=== PATIENT | female | born 1945 | race Caucasian/White ===

== ENCOUNTER 2020-12-15 14:41 | Emergency (ER) | payer MEDICARE ==
[~2020-12-15] VITALS: Ht 172.7 cm; Wt 72.6 kg
[2020-12-15] MEDS ORDERED: HYDROCODONE/APAP 7.5MG-325MG 1 EA TAB PO PRN (15:00)
[2020-12-15] MEDS ORDERED: TYLENOL # 31 EA PO (18:09)
[2020-12-15 18:24] VITALS: BP 163/78
== END 2020-12-15 18:29 | disposition home or self-care (01) ==
LOC: ER 14:53
DX: M25.552 Pain in left hip (principal); M16.12 Unilateral primary osteoarthritis, left hip; W01.0XXA Fall on same level from slipping, tripping and stumbling without subsequent striking against object, initial encounter; Y93.01 Activity, walking, marching and hiking; Y92.007 Garden or yard of unspecified non-institutional (private) residence as the place of occurrence of the external cause; I10 Essential (primary) hypertension; Z95.5 Presence of coronary angioplasty implant and graft
CPT/HCPCS: 73522; 99284

== ENCOUNTER 2020-12-17 11:21 | Inpatient (IN) | payer MEDICARE ==
[~2020-12-17] VITALS: Ht 172.7 cm; Wt 72.6 kg
[~2020-12-17 11:21] MED LIST: TYLENOL # 31 EA PO
[2020-12-17] MEDS ORDERED: ONDANSETRON HCL INJ 2MG/ML 2ML 2 MG/ML VIAL IV STA (12:46)
[2020-12-17] MEDS ORDERED: MORPHINE SULFATE INJ 4 MG/ML INJ 1ML IV PRN ×2 (13:00→13:45)
[2020-12-17] MEDS ORDERED: DIAZEPAM 5 MG TAB PO ONE (13:30)
[2020-12-17] MEDS ORDERED: ONDANSETRON HCL INJ 2MG/ML 2ML 2 MG/ML VIAL IV PRN ×2 (13:45→14:00)
[2020-12-17 13:56] LABS: BASOPHILS % 0.3 % (0.0-1.0); EOSINOPHILS % 0.3 % (0.0-6.0); HEMATOCRIT 42.8 % (34.2-44.1); HEMOGLOBIN 13.9 g/dL (12.0-16.0); LYMPHOCYTES # (AUTO) 1.2 (1.0-3.2); LYMPHOCYTES % 10.4 % (18.0-39.1); MEAN CORPUSCULAR HEMOGLOBIN 28.2 pg (28-32); MEAN CORPUSCULAR HGB CONC 32.5 g/dL (31-35); MEAN CORPUSCULAR VOLUME 86.8 fL (81-99); MONOCYTES # (AUTO) 1.1 (0.2-0.8); MONOCYTES % 9.1 % (4.4-11.3); NEUTROPHILS # (AUTO) 9.1 (2.1-6.9); NEUTROPHILS % 79.4 % (38.7-80.0); PLATELET COUNT 242 x10e3/uL (140-360); RED BLOOD COUNT 4.93 x10e6/uL (3.6-5.1); RED CELL DISTRIBUTION WIDTH 12.9 % (11.7-14.4)
[2020-12-17] MEDS ORDERED: DOCUSATE SODIUM 100 MG CAP PO PRN (14:00)
[2020-12-17 14:04] LABS: INR 0.92; PROTHROMBIN TIME 12.9 seconds (11.9-14.5)
[2020-12-17 14:13] LABS: ALBUMIN 3.6 g/dL (3.5-5.0); ALBUMIN/GLOBULIN RATIO 1.1 (0.8-2.0); ANION GAP 17.2 mmol/L (8-16); CALCIUM 9.4 mg/dL (8.4-10.2); CREATININE, SERUM 0.97 mg/dL (0.57-1.11); POTASSIUM 3.2 mmol/L (3.5-5.1)
[2020-12-17] MEDS ORDERED: HYDROMORPHONE 1MG/1ML INJ IV PRN (14:15)
[2020-12-17] MEDS ORDERED: MIRTAZAPINE7.5 MG PO (17:55)
[2020-12-17] MEDS ORDERED: ATORVASTATIN CA10 MG PO (17:55)
[2020-12-17] MEDS ORDERED: ATORVASTATIN CA20 MG PO (17:55)
[2020-12-17] MEDS ORDERED: LOSARTAN POTAS100 MG PO (17:55)
[2020-12-17] MEDS ORDERED: HYDROCHLOROTHIA25 MG PO (17:55)
[2020-12-17] MEDS ORDERED: AMIODARONE HCL200 MG PO (17:55)
[2020-12-17 18:00] VITALS: BP 156/102
[2020-12-17] MEDS ORDERED: AMLODIPINE BESYL5 MG PO (18:13)
[2020-12-17] MEDS ORDERED: TUMS ULTRA400 MG PO (18:14)
[2020-12-17] MEDS ORDERED: ACETAMINOPHEN/CODEINE 300MG - 30MG TAB PO PRN (18:15)
[2020-12-17] MEDS: OYST-CAL-D 500MG TABLET PO SCH ×2 (18:20→20:59)
[2020-12-17] MEDS: HYDROMORPHONE 1MG/1ML INJ IV PRN ×2 (18:20→22:07)
[2020-12-17] MEDS: FAMOTIDINE 20 MG TAB PO SCH (18:20)
[2020-12-17] MEDS ORDERED: HEPARIN SOD (PORCINE) 5,000 UNIT/ML VIAL SC ONE (18:30)
[2020-12-17 18:49] LABS: BASOPHILS % 0.4 % (0.0-1.0); EOSINOPHILS % 0.4 % (0.0-6.0); HEMATOCRIT 39.5 % (34.2-44.1); HEMOGLOBIN 12.7 g/dL (12.0-16.0); LYMPHOCYTES # (AUTO) 1.4 (1.0-3.2); LYMPHOCYTES % 15.9 % (18.0-39.1); MEAN CORPUSCULAR HGB CONC 32.2 g/dL (31-35); MEAN CORPUSCULAR VOLUME 87.2 fL (81-99); MONOCYTES # (AUTO) 0.8 (0.2-0.8); MONOCYTES % 8.5 % (4.4-11.3); NEUTROPHILS # (AUTO) 6.7 (2.1-6.9); NEUTROPHILS % 74.4 % (38.7-80.0); PLATELET COUNT 245 x10e3/uL (140-360); RED BLOOD COUNT 4.53 x10e6/uL (3.6-5.1); RED CELL DISTRIBUTION WIDTH 12.9 % (11.7-14.4)
[2020-12-17 19:04] LABS: INR 0.98; PROTHROMBIN TIME 13.6 seconds (11.9-14.5)
[2020-12-17 19:05] LABS: PARTIAL THROMBOPLASTIN TIME 29.8 seconds (23.8-35.5)
[2020-12-17 19:13] LABS: ALBUMIN 3.4 g/dL (3.5-5.0); ALBUMIN/GLOBULIN RATIO 1.1 (0.8-2.0); ANION GAP 12.1 mmol/L (8-16); CREATININE, SERUM 0.94 mg/dL (0.57-1.11); POTASSIUM 3.1 mmol/L (3.5-5.1)
[2020-12-17 20:00] VITALS: BP 135/79
[2020-12-17] MEDS ORDERED: POTASSIUM CHLORIDE 20 MEQ TAB CR PO STA (20:24)
[2020-12-17] MEDS: ATORVASTATIN 20 MG TAB PO SCH (20:59)
[2020-12-17] MEDS: AMLODIPINE BESYLATE 5 MG TAB PO SCH (20:59)
[2020-12-17] MEDS: MIRTAZAPINE 15 MG TAB PO SCH (20:59)
[2020-12-17 21:00] VITALS: BP 135/79
[2020-12-17] MEDS ORDERED: ATORVASTATIN 10 MG TAB PO SCH (21:00)
[2020-12-17] MEDS ORDERED: ZOLPIDEM TARTRATE 5 MG TAB PO PRN (21:00)
[2020-12-17 21:28] LABS: CLARITY,URINE SL CLOUDY (CLEAR); COLOR,URINE STRAW (YELLOW); KETONES,URINE NEGATIVE (NEGATIVE); LEUKOCYTE ESTERASE ,URINE NEGATIVE (NEGATIVE); NITRITE,URINE NEGATIVE (NEGATIVE); PROTEIN,URINE DIPSTICK NEGATIVE (NEGATIVE); URINE UROBILINOGEN 0.2 mg/dL (0.2 - 1)
[2020-12-17 21:41] LABS: AMORPHOUS SEDIMENT,URINE MODERATE (FEW); BACTERIA,URINE MODERATE /HPF; EPITHELIAL CELLS,URINE FEW /LPF; RBC,URINE 0-5 /HPF (0-5)
[2020-12-18] VITALS (7 sets, daily range): BP systolic 123–147; BP diastolic 61–75
[2020-12-18] MEDS: HYDROMORPHONE 1MG/1ML INJ IV PRN ×2 (01:45→05:18)
[2020-12-18 05:22] LABS: BASOPHILS # (AUTO) 0.1 (0.0-0.1); BASOPHILS % 0.6 % (0.0-1.0); EOSINOPHILS # (AUTO) 0.1 (0.0-0.4); EOSINOPHILS % 1.3 % (0.0-6.0); HEMATOCRIT 35.2 % (34.2-44.1); HEMOGLOBIN 11.3 g/dL (12.0-16.0); LYMPHOCYTES # (AUTO) 1.9 (1.0-3.2); LYMPHOCYTES % 22.6 % (18.0-39.1); MEAN CORPUSCULAR HEMOGLOBIN 28.3 pg (28-32); MEAN CORPUSCULAR HGB CONC 32.1 g/dL (31-35); MONOCYTES # (AUTO) 0.9 (0.2-0.8); NEUTROPHILS # (AUTO) 5.4 (2.1-6.9); NEUTROPHILS % 63.9 % (38.7-80.0); PLATELET COUNT 230 x10e3/uL (140-360); RED CELL DISTRIBUTION WIDTH 12.9 % (11.7-14.4)
[2020-12-18 06:05] LABS: ALBUMIN/GLOBULIN RATIO 1.2 (0.8-2.0); ANION GAP 11.1 mmol/L (8-16); CALCIUM 8.9 mg/dL (8.4-10.2); CREATININE, SERUM 0.99 mg/dL (0.57-1.11); POTASSIUM 3.1 mmol/L (3.5-5.1)
[2020-12-18] MEDS ORDERED: POTASSIUM CHLORIDE 20 MEQ TAB CR PO ONE (07:20)
[2020-12-18] MEDS: FAMOTIDINE 20 MG TAB PO SCH ×2 (08:15→16:30)
[2020-12-18] MEDS: METOPROLOL TARTRATE 25 MG TAB PO SCH ×2 (08:30→21:16)
[2020-12-18] MEDS: AMIODARONE HCL 200 MG TAB PO SCH (08:40)
[2020-12-18] MEDS: HYDROCHLOROTHIAZIDE 25 MG TAB PO SCH (08:41)
[2020-12-18] MEDS: MULTIVITAMINS/MINERALS TAB PO SCH (08:41)
[2020-12-18] MEDS: OYST-CAL-D 500MG TABLET PO SCH ×3 (08:42→21:16)
[2020-12-18] MEDS: TRAMADOL HCL 50 MG TAB PO PRN (08:44)
[2020-12-18] MEDS: SODIUM CHLORIDE 0.9% 1000ML 1,000 ML IV SCH ×2 (08:56→22:20)
[2020-12-18] MEDS ORDERED: CALCIUM CARBONATE 500 MG CHEWABLE TABS PO SCH (09:00)
[2020-12-18] MEDS ORDERED: LOSARTAN POTASSIUM 100 MG TAB PO SCH (09:00)
[2020-12-18] MEDS ORDERED: ATROPINE SULFATE 1 MG/ML VIAL ONE (12:29)
[2020-12-18] MEDS ORDERED: ONDANSETRON HCL INJ 2MG/ML 2ML 2 MG/ML VIAL ONE (12:29)
[2020-12-18] MEDS ORDERED: NEOSTIGMINE 1 MG/ML 10ML VIAL ONE (12:29)
[2020-12-18] MEDS ORDERED: SEVOFLURANE INHAL SOLN 250 ML PEN BTL ONE (12:29)
[2020-12-18] MEDS ORDERED: PROPOFOL IV EMULSION 10 MG/ML 20 ML VIAL ONE (12:29)
[2020-12-18] MEDS ORDERED: DEXAMETHASONE SOD PHOS INJ 4 MG/ML VIAL ONE (12:29)
[2020-12-18] MEDS ORDERED: LIDOCAINE HCL 2% LOCAL INJ 5 ML SDV VIAL INJ ONE (12:29)
[2020-12-18] MEDS ORDERED: ROCURONIUM BROMIDE 10 MG/ML 5ML VIAL IV ONE (12:29)
[2020-12-18] MEDS ORDERED: VANCOMYCIN HCL 1 GM VIAL ONE (15:09)
[2020-12-18] MEDS ORDERED: TRANEXAMIC ACID 1,000 MG/10 ML ML ONE (15:09)
[2020-12-18] MEDS ORDERED: ROPIVACAINE 246.25 MG, EPINEPHRINE HCL 1:1000 1ML 0.5 MG, CLONIDINE HCL 0.08 MG, KETORO... INJ ONE ×5 (16:00)
[2020-12-18] MEDS ORDERED: CEFAZOLIN SOD 1 GM VIAL ONE (16:50)
[2020-12-18] MEDS: CEFAZOLIN IV SCH ×2 (18:45→22:00)
[2020-12-18] MEDS: SODIUM CHLORIDE IV SCH ×2 (18:45→22:00)
[2020-12-18] MEDS ORDERED: DOCUSATE SODIUM 100 MG CAP PO PRN (18:45)
[2020-12-18 19:27] LABS: BASOPHILS # (AUTO) 0.1 (0.0-0.1); BASOPHILS % 0.4 % (0.0-1.0); EOSINOPHILS # (AUTO) 0.1 (0.0-0.4); EOSINOPHILS % 0.4 % (0.0-6.0); HEMATOCRIT 38.4 % (34.2-44.1); LYMPHOCYTES # (AUTO) 1.2 (1.0-3.2); LYMPHOCYTES % 6.5 % (18.0-39.1); MEAN CORPUSCULAR HEMOGLOBIN 28.1 pg (28-32); MEAN CORPUSCULAR HGB CONC 31.3 g/dL (31-35); MEAN CORPUSCULAR VOLUME 89.9 fL (81-99); MONOCYTES # (AUTO) 0.5 (0.2-0.8); MONOCYTES % 2.7 % (4.4-11.3); NEUTROPHILS # (AUTO) 16.6 (2.1-6.9); NEUTROPHILS % 89.4 % (38.7-80.0); PLATELET COUNT 225 x10e3/uL (140-360); RED BLOOD COUNT 4.27 x10e6/uL (3.6-5.1); RED CELL DISTRIBUTION WIDTH 12.9 % (11.7-14.4)
[2020-12-18 19:44] LABS: ANION GAP 12.6 mmol/L (8-16); CALCIUM 8.6 mg/dL (8.4-10.2); CREATININE, SERUM 1.14 mg/dL (0.57-1.11); POTASSIUM 3.6 mmol/L (3.5-5.1)
[2020-12-18] MEDS: ATORVASTATIN 20 MG TAB PO SCH (21:15)
[2020-12-18] MEDS: MIRTAZAPINE 15 MG TAB PO SCH (21:16)
[2020-12-18] MEDS: AMLODIPINE BESYLATE 5 MG TAB PO SCH (21:16)
[2020-12-19] VITALS: BP_SYST 112; BP_SYST 128; BP_DIAS 53; BP_DIAS 59
[2020-12-19 04:00] VITALS: BP 124/65
[2020-12-19 05:19] LABS: HEMATOCRIT 33.9 % (34.2-44.1); HEMOGLOBIN 11.1 g/dL (12.0-16.0)
[2020-12-19] MEDS: CEFAZOLIN IV SCH ×3 (06:00→21:40)
[2020-12-19] MEDS: SODIUM CHLORIDE IV SCH ×3 (06:00→21:40)
[2020-12-19 07:43] LABS: BASOPHILS % 0.1 % (0.0-1.0); HEMATOCRIT 34.7 % (34.2-44.1); HEMOGLOBIN 11.2 g/dL (12.0-16.0); LYMPHOCYTES # (AUTO) 0.7 (1.0-3.2); LYMPHOCYTES % 5.1 % (18.0-39.1); MEAN CORPUSCULAR HEMOGLOBIN 28.3 pg (28-32); MEAN CORPUSCULAR HGB CONC 32.3 g/dL (31-35); MEAN CORPUSCULAR VOLUME 87.6 fL (81-99); MONOCYTES # (AUTO) 0.7 (0.2-0.8); MONOCYTES % 5.2 % (4.4-11.3); NEUTROPHILS # (AUTO) 12.7 (2.1-6.9); NEUTROPHILS % 89.1 % (38.7-80.0); PLATELET COUNT 230 x10e3/uL (140-360); RED BLOOD COUNT 3.96 x10e6/uL (3.6-5.1); RED CELL DISTRIBUTION WIDTH 12.8 % (11.7-14.4)
[2020-12-19 07:54] LABS: ANION GAP 14.1 mmol/L (8-16); CALCIUM 8.5 mg/dL (8.4-10.2); CREATININE, SERUM 1.19 mg/dL (0.57-1.11); POTASSIUM 4.1 mmol/L (3.5-5.1)
[2020-12-19 07:59] VITALS: BP 118/61
[2020-12-19] MEDS: AMIODARONE HCL 200 MG TAB PO SCH (08:18)
[2020-12-19] MEDS: FAMOTIDINE 20 MG TAB PO SCH ×2 (08:18→16:47)
[2020-12-19] MEDS: OYST-CAL-D 500MG TABLET PO SCH ×3 (08:19→21:37)
[2020-12-19] MEDS: TRAMADOL HCL 50 MG TAB PO PRN ×2 (08:19→16:46)
[2020-12-19] MEDS: METOPROLOL TARTRATE 25 MG TAB PO SCH ×2 (08:19→21:37)
[2020-12-19] MEDS: MULTIVITAMINS/MINERALS TAB PO SCH (08:19)
[2020-12-19] MEDS: HYDROCHLOROTHIAZIDE 25 MG TAB PO SCH (08:19)
[2020-12-19 08:53] VITALS: BP 118/61
[2020-12-19 12:00] VITALS: BP 105/92
[2020-12-19] MEDS: HYDROCODONE/APAP 5MG-325MG TAB PO PRN (12:44)
[2020-12-19] MEDS: SODIUM CHLORIDE 0.9% 1000ML 1,000 ML IV SCH (12:49)
[2020-12-19] MEDS: ENOXAPARIN SOD INJ 40 MG/0.4 ML SYR SC SCH (16:47)
[2020-12-19] MEDS: HYDROMORPHONE 1MG/1ML INJ IV PRN ×2 (18:00→21:25)
[2020-12-19 20:00] VITALS: BP 127/60
[2020-12-19] MEDS: ATORVASTATIN 20 MG TAB PO SCH (21:37)
[2020-12-19] MEDS: MIRTAZAPINE 15 MG TAB PO SCH (21:37)
[2020-12-20] VITALS (9 sets, daily range): BP systolic 122–143; BP diastolic 53–87
[2020-12-20] MEDS: SODIUM CHLORIDE 0.9% 1000ML 1,000 ML IV SCH ×2 (01:00→21:45)
[2020-12-20] MEDS: HYDROMORPHONE 1MG/1ML INJ IV PRN ×4 (01:40→18:10)
[2020-12-20 05:05] LABS: HEMATOCRIT 32.5 % (34.2-44.1); HEMOGLOBIN 10.5 g/dL (12.0-16.0)
[2020-12-20 08:04] LABS: ANION GAP 9.3 mmol/L (8-16); CALCIUM 8.3 mg/dL (8.4-10.2); CREATININE, SERUM 1.15 mg/dL (0.57-1.11); POTASSIUM 3.3 mmol/L (3.5-5.1)
[2020-12-20] MEDS: ALPRAZOLAM 0.25 MG TAB PO PRN ×2 (09:13→21:05)
[2020-12-20] MEDS: METOPROLOL TARTRATE 25 MG TAB PO SCH ×2 (09:18→21:05)
[2020-12-20] MEDS: FAMOTIDINE 20 MG TAB PO SCH ×2 (09:18→16:20)
[2020-12-20] MEDS: MULTIVITAMINS/MINERALS TAB PO SCH (09:18)
[2020-12-20] MEDS: AMIODARONE HCL 200 MG TAB PO SCH (09:18)
[2020-12-20] MEDS: HYDROCHLOROTHIAZIDE 25 MG TAB PO SCH (09:18)
[2020-12-20] MEDS: OYST-CAL-D 500MG TABLET PO SCH ×3 (09:18→21:05)
[2020-12-20] MEDS ORDERED: POTASSIUM CHLORIDE 20 MEQ TAB CR PO ONE (11:00)
[2020-12-20] MEDS ORDERED: KETOROLAC TROMETHAMINE 30 MG/ML VIAL IV ONE (11:30)
[2020-12-20] MEDS: ENOXAPARIN SOD INJ 40 MG/0.4 ML SYR SC SCH (16:20)
[2020-12-20] MEDS: HYDROCODONE/APAP 7.5MG-325MG 1 EA TAB PO PRN (16:20)
[2020-12-20] MEDS: ATORVASTATIN 20 MG TAB PO SCH (21:05)
[2020-12-20] MEDS: MIRTAZAPINE 15 MG TAB PO SCH (21:05)
[2020-12-21] VITALS (8 sets, daily range): BP systolic 126–149; BP diastolic 54–86
[2020-12-21] MEDS: SODIUM CHLORIDE 0.9% 1000ML 1,000 ML IV SCH ×2 (05:41→16:43)
[2020-12-21] MEDS: AMIODARONE HCL 200 MG TAB PO SCH (08:08)
[2020-12-21] MEDS: METOPROLOL TARTRATE 25 MG TAB PO SCH ×2 (08:08→21:20)
[2020-12-21] MEDS: HYDROCHLOROTHIAZIDE 25 MG TAB PO SCH (08:08)
[2020-12-21] MEDS: OYST-CAL-D 500MG TABLET PO SCH ×3 (08:08→21:20)
[2020-12-21] MEDS: FAMOTIDINE 20 MG TAB PO SCH ×2 (08:08→15:49)
[2020-12-21] MEDS: MULTIVITAMINS/MINERALS TAB PO SCH (08:08)
[2020-12-21] MEDS: HYDROCODONE/APAP 7.5MG-325MG 1 EA TAB PO PRN (10:48)
[2020-12-21] MEDS: ACETAMINOPHEN 325 MG TAB PO PRN (15:13)
[2020-12-21 15:26] LABS: ANION GAP 7.1 mmol/L (8-16); BLOOD UREA NITROGEN 22 mg/dL (7-26); BUN/CREATININE RATIO 25 (6-25); CALCIUM 8.6 mg/dL (8.4-10.2); CARBON DIOXIDE 26 mmol/L (22-29); CHLORIDE 104 mmol/L (98-107); CREATININE, SERUM 0.88 mg/dL (0.57-1.11); EST GLOMERULAR FILTRATION RATE > 60 ML/MIN (60-); GLUCOSE 111 mg/dL (74-118); POTASSIUM 3.1 mmol/L (3.5-5.1); SODIUM 134 mmol/L (136-145)
[2020-12-21] MEDS ORDERED: POTASSIUM CHLORIDE 20 MEQ TAB CR PO ONE (16:30)
[2020-12-21] MEDS: ENOXAPARIN SOD INJ 40 MG/0.4 ML SYR SC SCH (16:43)
[2020-12-21] MEDS: MIRTAZAPINE 15 MG TAB PO SCH (21:20)
[2020-12-21] MEDS: ATORVASTATIN 20 MG TAB PO SCH (21:20)
[2020-12-21] MEDS: HYDROMORPHONE 1MG/1ML INJ IV PRN (21:39)
[2020-12-22] VITALS (8 sets, daily range): BP systolic 109–162; BP diastolic 51–72
[2020-12-22] MEDS: SODIUM CHLORIDE 0.9% 1000ML 1,000 ML IV SCH ×2 (03:48→19:00)
[2020-12-22] MEDS: HYDROMORPHONE 1MG/1ML INJ IV PRN ×2 (06:58→12:43)
[2020-12-22] MEDS: FAMOTIDINE 20 MG TAB PO SCH ×2 (08:19→16:20)
[2020-12-22] MEDS: OYST-CAL-D 500MG TABLET PO SCH ×3 (08:19→21:00)
[2020-12-22] MEDS: MULTIVITAMINS/MINERALS TAB PO SCH (08:19)
[2020-12-22] MEDS: AMIODARONE HCL 200 MG TAB PO SCH (08:19)
[2020-12-22] MEDS: HYDROCHLOROTHIAZIDE 25 MG TAB PO SCH (08:19)
[2020-12-22] MEDS: METOPROLOL TARTRATE 25 MG TAB PO SCH ×2 (08:20→21:00)
[2020-12-22 09:59] LABS: ANION GAP 9.2 mmol/L (8-16); BLOOD UREA NITROGEN 14 mg/dL (7-26); BUN/CREATININE RATIO 17 (6-25); CALCIUM 8.8 mg/dL (8.4-10.2); CARBON DIOXIDE 27 mmol/L (22-29); CHLORIDE 103 mmol/L (98-107); CREATININE, SERUM 0.82 mg/dL (0.57-1.11); EST GLOMERULAR FILTRATION RATE > 60 ML/MIN (60-); GLUCOSE 158 mg/dL (74-118); POTASSIUM 3.2 mmol/L (3.5-5.1); SODIUM 136 mmol/L (136-145)
[2020-12-22] MEDS: ENOXAPARIN SOD INJ 40 MG/0.4 ML SYR SC SCH (16:20)
[2020-12-22] MEDS: HYDROCODONE/APAP 7.5MG-325MG 1 EA TAB PO PRN ×2 (16:21→21:49)
[2020-12-22] MEDS: ACETAMINOPHEN 325 MG TAB PO PRN (18:24)
[2020-12-22] MEDS: ATORVASTATIN 20 MG TAB PO SCH (20:59)
[2020-12-22] MEDS: ALPRAZOLAM 0.25 MG TAB PO PRN (21:00)
[2020-12-22] MEDS: ONDANSETRON HCL INJ 2MG/ML 2ML 2 MG/ML VIAL IV PRN (21:00)
[2020-12-22] MEDS: MIRTAZAPINE 15 MG TAB PO SCH (21:00)
[2020-12-22] MEDS: TRAMADOL HCL 50 MG TAB PO PRN (21:50)
[2020-12-23] VITALS (10 sets, daily range): BP systolic 93–150; BP diastolic 49–81
[2020-12-23] MEDS: AMIODARONE HCL 200 MG TAB PO SCH (08:15)
[2020-12-23] MEDS: MULTIVITAMINS/MINERALS TAB PO SCH (08:15)
[2020-12-23] MEDS: FAMOTIDINE 20 MG TAB PO SCH ×2 (08:15→16:10)
[2020-12-23] MEDS: METOPROLOL TARTRATE 25 MG TAB PO SCH ×2 (08:15→21:43)
[2020-12-23] MEDS: HYDROCHLOROTHIAZIDE 25 MG TAB PO SCH (08:15)
[2020-12-23] MEDS: OYST-CAL-D 500MG TABLET PO SCH ×3 (08:15→21:43)
[2020-12-23] MEDS: SODIUM CHLORIDE 0.9% 1000ML 1,000 ML IV SCH (09:00)
[2020-12-23] MEDS: HYDROMORPHONE 1MG/1ML INJ IV PRN ×2 (11:38→23:25)
[2020-12-23 13:55] LABS: ANION GAP 11.1 mmol/L (8-16); BLOOD UREA NITROGEN 12 mg/dL (7-26); BUN/CREATININE RATIO 15 (6-25); CALCIUM 8.8 mg/dL (8.4-10.2); CARBON DIOXIDE 26 mmol/L (22-29); CHLORIDE 101 mmol/L (98-107); CREATININE, SERUM 0.82 mg/dL (0.57-1.11); EST GLOMERULAR FILTRATION RATE > 60 ML/MIN (60-); GLUCOSE 161 mg/dL (74-118); POTASSIUM 3.1 mmol/L (3.5-5.1); SODIUM 135 mmol/L (136-145)
[2020-12-23] MEDS: ENOXAPARIN SOD INJ 40 MG/0.4 ML SYR SC SCH (16:10)
[2020-12-23] MEDS ORDERED: POTASSIUM CHLORIDE 10MEQ EA PO ONE (17:30)
[2020-12-23] MEDS: HYDROCODONE/APAP 5MG-325MG TAB PO PRN (17:42)
[2020-12-23] MEDS: ATORVASTATIN 20 MG TAB PO SCH (21:42)
[2020-12-23] MEDS: MIRTAZAPINE 15 MG TAB PO SCH (21:43)
[2020-12-23] MEDS: ONDANSETRON HCL INJ 2MG/ML 2ML 2 MG/ML VIAL IV PRN (23:25)
[2020-12-24] VITALS (7 sets, daily range): BP systolic 125–146; BP diastolic 64–68
[2020-12-24] MEDS: METOPROLOL TARTRATE 25 MG TAB PO SCH (08:23)
[2020-12-24] MEDS: AMIODARONE HCL 200 MG TAB PO SCH (08:23)
[2020-12-24] MEDS: FAMOTIDINE 20 MG TAB PO SCH ×2 (08:23→17:19)
[2020-12-24] MEDS: HYDROCHLOROTHIAZIDE 25 MG TAB PO SCH (08:23)
[2020-12-24] MEDS: MULTIVITAMINS/MINERALS TAB PO SCH (08:24)
[2020-12-24] MEDS: OYST-CAL-D 500MG TABLET PO SCH ×2 (08:24→14:30)
[2020-12-24] MEDS: HYDROMORPHONE 1MG/1ML INJ IV PRN (10:32)
[2020-12-24] MEDS ORDERED: LOPRESSOR25 MG PO (11:12)
[2020-12-24] MEDS ORDERED: ULTRAM 50MG50 MG PO (11:12)
[2020-12-24] MEDS ORDERED: FAMOTIDINE20 MG PO (11:12)
[2020-12-24] MEDS ORDERED: LOVENOX40 MG/0.4 SC (11:12)
[2020-12-24 13:31] LABS: ANION GAP 9.2 mmol/L (8-16); BLOOD UREA NITROGEN 13 mg/dL (7-26); BUN/CREATININE RATIO 16 (6-25); CALCIUM 8.9 mg/dL (8.4-10.2); CARBON DIOXIDE 25 mmol/L (22-29); CHLORIDE 103 mmol/L (98-107); CREATININE, SERUM 0.81 mg/dL (0.57-1.11); EST GLOMERULAR FILTRATION RATE > 60 ML/MIN (60-); GLUCOSE 156 mg/dL (74-118); POTASSIUM 3.2 mmol/L (3.5-5.1); SODIUM 134 mmol/L (136-145)
[2020-12-24] MEDS ORDERED: POTASSIUM CHLORIDE 10MEQ EA PO ONE (14:45)
[2020-12-24] MEDS: HYDROCODONE/APAP 7.5MG-325MG 1 EA TAB PO PRN (15:34)
[2020-12-24] MEDS: ENOXAPARIN SOD INJ 40 MG/0.4 ML SYR SC SCH (17:19)
[2020-12-25] MEDS ORDERED: BALSAM PERU/CASTOR OIL 60 GM OINT...G. TP SCH (09:00)
== END 2020-12-24 21:30 | DRG 522 ==
LOC: ER 11:40 → ERHOLD 13:35 → MED/SURG2 17:20
PROVIDERS: ADMIT Internal Medicine; ATTEND Internal Medicine
PROC: 0SRS01A Replacement of Left Hip Joint, Femoral Surface with Metal Synthetic Substitute, Uncemented, Open Approach (ICD-10-PCS; principal; 2020-12-18 14:30)
DX: S72.012A Unspecified intracapsular fracture of left femur, initial encounter for closed fracture (principal); N17.9 Acute kidney failure, unspecified; N18.9 Chronic kidney disease, unspecified; E87.6 Hypokalemia; W19.XXXA Unspecified fall, initial encounter; Z20.822 Contact with and (suspected) exposure to COVID-19; I25.10 Atherosclerotic heart disease of native coronary artery without angina pectoris; Z95.5 Presence of coronary angioplasty implant and graft; E78.5 Hyperlipidemia, unspecified; I11.9 Hypertensive heart disease without heart failure; I49.9 Cardiac arrhythmia, unspecified
CPT/HCPCS: 36415; 71045; 72170; 73521; 76770; 80048; 80053; 81001; 82948; 85014; 85018; 85025; 85610; 85730; 86850; 86900; 93005; 93970; 97139; 99251; 99284; J0171; J0461; J0690; J1100; J1170; J1644; J1650; J1885; J2001; J2270; J2405; J2710; J2795; J3370; J7030; U0002